=== PATIENT | female | born 1965 | race Caucasian/White ===

== ENCOUNTER 2017-03-06 17:39 | Emergency (ER) | payer BC ==
[~2017-03-06] VITALS: Ht 171.4 cm; Wt 54.8 kg
[2017-03-06] MEDS ORDERED: SODIUM CHLORIDE FLUSH 10ML SYR IVF ONE ×2 (18:00→18:30)
[2017-03-06] MEDS ORDERED: DEXAMETHASONE 4 MG/ML, 1ML IVPush ONE (18:00)
[2017-03-06] MEDS ORDERED: SODIUM CHLORIDE 0.9% 1,000ML IVBOLUS ONE ×2 (18:00→18:30)
[2017-03-06] MEDS ORDERED: KETOROLAC 30 MG/1 ML IVPush ONE (18:00)
[2017-03-06] MEDS ORDERED: METOCLOPRAMIDE 5 MG/ML, 2ML IVPush ONE ×2 (18:00→18:30)
[2017-03-06] MEDS ORDERED: DEXAMETHASONE 12 MG in SODIUM CHLORIDE 0.9% 50 ML IV ONE (18:00)
[2017-03-06] MEDS ORDERED: DIPHENHYDRAMINE 50 MG/ML, 1ML IVPush ONE ×2 (18:00→18:30)
[2017-03-06] MEDS ORDERED: DIPHENHYDRAMINE 50 MG/ML, 1ML ONE (18:51)
[2017-03-06] MEDS ORDERED: KETOROLAC 30 MG/1 ML ONE (18:51)
[2017-03-06] MEDS ORDERED: METOCLOPRAMIDE 5 MG/ML, 2ML ONE (18:52)
[2017-03-06 20:28] VITALS: BP 108/58
== END 2017-03-06 20:41 | disposition home or self-care (01) ==
LOC: ED 20:30
DX: G43.011 Migraine without aura, intractable, with status migrainosus (principal); F17.200 Nicotine dependence, unspecified, uncomplicated; Z88.8 Allergy status to other drugs, medicaments and biological substances; Z88.1 Allergy status to other antibiotic agents
CPT/HCPCS: 96361; 96374; 96375; 99285; J1200; J1885; J2765; J7030